=== PATIENT | male | born 1970 | race Caucasian/White ===

== ENCOUNTER 2021-12-21 10:43 | Outpatient (CLI) | payer BC, SELFPAY ==
--- NOTE | 2021-12-21 10:58 | XR_ITS ---
WS: [email or web address] FOOT RIGHT TECHNIQUE: 2 views of the right foot CLINICAL INFORMATION: M25.50 - Pain in unspecified joint COMPARISON: None. FINDINGS: No evidence of acute fracture or dislocation. Normal tarsal metatarsal alignment. Normal calcaneus. N ormal visualized talar dome. Small plantar calcaneal spur. XR/XR foot RT 2V [id number] IMPRESSION: Small plantar calcaneal spur. No significant erosive changes.
--- NOTE | 2021-12-21 10:58 | XR_ITS ---
WS: [email or web address] XR hand LT 2V [id number] REASON FOR EXAM: M79.89 - Other specified soft tissue disorders FINDINGS: There is minimal narrowing of the joint spaces in the PIP joints of the second through the fifth fing ers. Similar joint space narrowing the DIP joint of the fifth finger. No significant subarticular bon e abnormality. No erosions or periosteal reaction. No soft tissue abnormality. XR/XR hand LT 2V [id number] IMPRESSION: Mild joint space narrowing as above which may indicate early osteoarthritis.
--- NOTE | 2021-12-21 10:58 | XR_ITS ---
WS: [email or web address] SHOULDER RIGHT TECHNIQUE: 3 views of the right shoulder CLINICAL INFORMATION: M79.89 - Other specified soft tissue disorders COMPARISON: None. FINDINGS: Mild osteoarthritis AC joint and glenohumeral joint. Acromion is normal in appearance. Normal glenoid . No evidence of acute fracture dislocation. XR/XR shoulder RT min 2V* [id number] IMPRESSION: Mild degenerative arthritis right shoulder.
--- NOTE | 2021-12-21 10:58 | XR_ITS ---
WS: [email or web address] TECHNIQUE: 2 views of the right hand CLINICAL INFORMATION: M79.89 - Other specified soft tissue disorders COMPARISON: None. FINDINGS: Normal metacarpals. Normal MCP joint. Metacarpal heads are normal in appearance. Normal PIP and DIP j oints. No evidence of acute fracture or dislocation. Chronic well-corticated ulna styloid avulsion. N o significant erosive changes. Radiocarpal joint: Normal. Carpal bones: Normal. XR/XR hand RT 2V [id number] IMPRESSION: No significant erosive changes.
--- NOTE | 2021-12-21 10:58 | XR_ITS ---
WS: [email or web address] FOOT LEFT TECHNIQUE: 2 views of the left foot CLINICAL INFORMATION: M25.50 - Pain in unspecified joint COMPARISON: None. FINDINGS: No evidence of acute fracture or dislocation. Normal tarsal metatarsal alignment. Normal calcaneus. N ormal visualized talar dome. Small plantar calcaneal spur. No significant erosive changes. Mild degen erative arthritis at the first MTP. XR/XR foot LT 2V [id number] IMPRESSION: Mild degenerative arthritis first MTP.
--- NOTE | 2021-12-21 10:58 | XR_ITS ---
WS: [email or web address] SHOULDER LEFT TECHNIQUE: 3 views of the left shoulder CLINICAL INFORMATION: M06.9 - Rheumatoid arthritis, unspecified COMPARISON: None. FINDINGS: Mild degenerative arthritis AC joint and glenohumeral joint. Narrowing of the subacromial space which appears projectional. Acromion is normal in appearance. Normal glenoid. No evidence of acute fractur e dislocation. XR/XR shoulder LT min 2V* [id number] IMPRESSION: Mild degenerative arthritis AC joint and glenohumeral joint.
--- NOTE | 2021-12-21 10:58 | XR_ITS ---
WS: [email or web address] SI JOINTS TECHNIQUE: 3 views of the sacroiliac joints CLINICAL INFORMATION: L40.9 - Psoriasis, unspecified COMPARISON: None. FINDINGS: Sacroiliac joints appear normal. No erosive changes. Slight periarticular sclerosis about both sacroi liac joints. XR/XR sacroiliac jts m 3V [id number] IMPRESSION: Slight periarticular sclerosis. No significant erosive changes.
[2021-12-21 12:40] LABS: Erythrocyte Sedimentation Rate 19 mm/hr (0-10)
[2021-12-21 13:06] LABS: C Reactive Protein 51.4 mg/L (0.0-4.9); Creatine Phosphokinase 31 U/L (39-308); Ferritin 288 ng/mL (30-400); Iron 96 ug/dL (59-158); Magnesium 2.4 mg/dL (1.7-2.3); Phosphorus 3.3 mg/dL (2.5-4.5)
[2021-12-21 13:26] LABS: Bilirubin Urine Neg (Negative); Blood Urine Neg (Negative); Glucose Urine UA Norm (Normal); Ketones Urine Negative (Negative); Leukocyte Esterase Urine Negative (Negative); Nitrate Urine Negative (Negative); Protein Urine Neg (Negative); Specific Gravity, Urine 1.015 (1.005-1.030); Sulfosalicylic Acid Urine Negative (Negative); Urine Appearance Cloudy (CLEAR); Urine Color Yellow (Yellow); Urobilinogen Urine Neg (Negative); pH Urine 8 (5-7)
[2021-12-21 13:27] LABS: Add Urine Microscopic? NO
[2021-12-21 14:16] LABS: Hepatitis B Core AB, Total Non-Reactive (Nonreactive); Hepatitis B Surface Antigen Non-Reactive (Nonreactive); Hepatitis C Virus Antibody Non-Reactive (Nonreactive)
[2021-12-21 19:13] LABS: Add Urine Culture? No; Squamous Epithelial Cell Urine RARE /hpf (0-5); WBC Urine RARE /hpf (0-5)
[2021-12-22 11:37] LABS: Cyclic Citrullinated Peptide <16 UNITS
[2021-12-22 12:07] LABS: COMPLEMENT, TOTAL (CH50) >60 U/mL (31-60)
[2021-12-22 13:23] LABS: CENTROMERE B ANTIBODY <1.0 NEG AI (<1.0 NEG); JO-1 ANTIBODY <1.0 NEG AI (<1.0 NEG); RNP ANTIBODY <1.0 NEG AI (<1.0 NEG); SCL-70 ANTIBODY <1.0 NEG AI (<1.0 NEG); SJOGREN'S ANTIBODY (SS-A) <1.0 NEG AI (<1.0 NEG); SM ANTIBODY <1.0 NEG AI (<1.0 NEG); SS-B <1.0 NEG AI (<1.0 NEG)
[2021-12-22 14:47] LABS: COMPLEMENT COMPONENT C3C 164 mg/dL (82-185); COMPLEMENT COMPONENT C4C 49 mg/dL (15-53)
[2021-12-22 15:06] LABS: THYROID PEROXIDASE ANTIBODIES 20 IU/mL (<9)
[2021-12-22 16:51] LABS: ANA SCREEN, IFA NEGATIVE (NEGATIVE)
[2021-12-25 12:03] LABS: DNA AB (DS) CRITHIDIA,IFA NEGATIVE (NEGATIVE)
== END 2021-12-21 10:44 | disposition home or self-care (01) ==
PROVIDERS: PCP Family Medicine; Visit Provider Internal Medicine
DX: M25.50 Pain in unspecified joint (principal); M79.89 Other specified soft tissue disorders; L40.9 Psoriasis, unspecified; M06.9 Rheumatoid arthritis, unspecified; Z11.59 Encounter for screening for other viral diseases
CPT/HCPCS: 36415; 72202; 73030; 73120; 73620; 81001; 82550; 82728; 83540; 83735; 84100; 84550; 85651; 86140; 86160; 86162; 86200; 86235; 86255; 86376; 86431; 86704; 86803; 87340

== ENCOUNTER → 2023-02-09 11:56 | Outpatient (BNVA) | payer OTHER, SELFPAY | PROVIDERS: PCP Family Medicine; Visit Provider Family Medicine | DX: Z00.00 Encounter for general adult medical examination without abnormal findings (principal) | CPT/HCPCS: 80053; 80061; 83036; 84443; 85025 ==

== ENCOUNTER → 2023-06-15 11:14 | Outpatient (BNVA) | payer OTHER, SELFPAY | PROVIDERS: PCP Family Medicine; Visit Provider Family Medicine | DX: E86.0 Dehydration (principal) | CPT/HCPCS: 80053 ==

== ENCOUNTER → 2025-01-03 08:43 | Outpatient (BNVA) | payer OTHER, SELFPAY | PROVIDERS: PCP Family Medicine; Visit Provider Family Medicine | DX: Z00.00 Encounter for general adult medical examination without abnormal findings (principal); E03.9 Hypothyroidism, unspecified | CPT/HCPCS: 80053; 80061; 84443; 85025; G0103 ==